=== PATIENT | female | born 1970 | race Caucasian/White ===

== ENCOUNTER → 2024-03-21 10:10 | Outpatient (REF) | payer OTHER, SELFPAY | LOC: RAD 10:10 | PROVIDERS: ATTENDING PHYSICIAN Nurse Practitioner Family | DX: R07.81 Pleurodynia (principal) | CPT/HCPCS: 71101 ==

== ENCOUNTER → 2024-07-15 08:53 | Outpatient (REF) | payer OTHER, SELFPAY | LOC: RAD 08:53 | PROVIDERS: ATTENDING PHYSICIAN Nurse Practitioner Family; FAMILY PHYSICIAN Emergency Medicine | DX: R07.81 Pleurodynia (principal) | CPT/HCPCS: 71250 ==

== ENCOUNTER → 2024-07-29 07:45 | Outpatient (REF) | payer OTHER, SELFPAY | LOC: WDC 07:45 | PROVIDERS: ATTENDING PHYSICIAN Obstetrics & Gynecology; FAMILY PHYSICIAN Emergency Medicine | DX: Z12.31 Encounter for screening mammogram for malignant neoplasm of breast (principal) | CPT/HCPCS: 77063; 77067 ==

== ENCOUNTER → 2024-08-09 09:32 | Outpatient (REF) | payer OTHER, SELFPAY | LOC: WDC 09:32 | PROVIDERS: ATTENDING PHYSICIAN Obstetrics & Gynecology; FAMILY PHYSICIAN Emergency Medicine | DX: R92.8 Other abnormal and inconclusive findings on diagnostic imaging of breast (principal) | CPT/HCPCS: 77063; 77067 ==